=== PATIENT | female | born 1980 | race Caucasian/White ===

== ENCOUNTER 2018-05-14 05:33 | Day surgery (SDC) | payer OTHER ==
[2018-05-07 14:43] VITALS: BMI 22.6
[2018-05-07 15:04] LABS: BASO % 0.7 % (0-2.0); EOS % 1.3 % (0-4.5); HEMATOCRIT 38.9 % (32.4-45.2); HEMOGLOBIN 13.5 GM/dL (10.7-15.3); LYMPH % 25.4 % (8-40); MCH 31.7 pg (25.7-33.7); MCHC 34.7 g/dl (32.0-36.0); MEAN CELL VOLUME 91.4 fl (80-96); MEAN PLT VOLUME 9.7 fl (7.5-11.1); MONO % 9.6 % (3.8-10.2); PLATELET COUNT 261 K/MM3 (134-434); RBC 4.25 M/mm3 (3.60-5.2); RDW 12.6 % (11.6-15.6); WHITE BLOOD COUNT 6.7 K/mm3 (4.0-10.0)
[2018-05-07 15:33] LABS: ALBUMIN 3.6 g/dl (3.4-5.0); ALK PHOS 64 U/L (45-117); ANION GAP 7 MMOL/L (8-16); BILIRUBIN,TOTAL 0.4 mg/dL (0.2-1); BLOOD UREA NITROGEN 15 mg/dL (7-18); CALCIUM 8.4 mg/dL (8.5-10.1); CHLORIDE 105 mmol/L (98-107); CO2 26 mmol/L (21-32); CREATININE 0.7 mg/dL (0.55-1.3); GLUCOSE,RANDOM 77 mg/dL (74-106); SGOT/AST 19 U/L (15-37); SGPT/ALT 24 U/L (13-61); SODIUM 138 mmol/L (136-145); TOT PROT 7.6 g/dl (6.4-8.2)
[2018-05-07 16:39] LABS: INR 1.03 (0.83-1.09); PROTHROMBIN TIME (PATIENT) 12.2 SEC (9.7-13.0)
[2018-05-14] MEDS ORDERED: ONDANSETRON 4 MG/2 ML VIAL ONE (07:17)
[2018-05-14] MEDS ORDERED: DEXAMETHASONE SOD PHOSPHATE 4 MG/1 ML VIAL ONE (07:17)
[2018-05-14] MEDS ORDERED: SODIUM CHLORIDE 0.9% P/F 10 ML VIAL IJ ONE (07:17)
[2018-05-14] MEDS ORDERED: ceFAZolin SODIUM 1 GM VIAL ONE (07:17)
[2018-05-14] MEDS ORDERED: LIDOCAINE HCL/PF 2% SDV 5ML VIAL ONE (07:17)
[2018-05-14] MEDS ORDERED: PROPOFOL 20 ML ONE (07:18)
[2018-05-14] MEDS ORDERED: ROCURONIUM BROMIDE 50 MG/5 ML VIAL ONE (07:18)
[2018-05-14] MEDS ORDERED: MIDAZOLAM HCL 2 MG/2 ML SINGLE DOSE VIAL ONE (07:19)
--- NOTE | 2018-05-14 08:03 | HP ---
History & Physical Update - Physical Physical: No Change - Assessment Assessment: No Change - Plan Plan: No Change ( one prervious c/s for laparoscopic bilateral tubal cauterization)
[2018-05-14] MEDS ORDERED: ONDANSETRON 4 MG/2 ML VIAL IVPUSH PRN ×2 (08:25→08:54)
[2018-05-14] MEDS ORDERED: NEOSTIGMINE METHYLSULFATE 0.5 MG/1 ML - 10 ML MDV ONE (08:28)
[2018-05-14] MEDS ORDERED: LACTATED RINGERS SOLUTION 1,000 ML IV SCH (08:30)
[2018-05-14] MEDS ORDERED: KETOROLAC TROMETHAMINE 30 MG/1 ML VIAL ONE (08:37)
[2018-05-14] MEDS ORDERED: GLYCOPYRROLATE 0.2 MG/1 ML VIAL ONE (08:42)
[2018-05-14] MEDS ORDERED: IBUPROFEN 600 MG TABLET (FP) PO PRN (08:54)
[2018-05-14] MEDS ORDERED: IBUPROFEN 800 MG/8 ML IJ IVPB PRN (08:54)
[2018-05-14] MEDS ORDERED: oxyCODONE HCL 5 MG TABLET PO PRN (08:54)
[2018-05-14] MEDS ORDERED: ELECTROLYTE-148 SOLN 1,000 ML IV SCH (09:00)
[2018-05-14 11:36] VITALS: TEMP 97.8
[2018-05-14 12:23] VITALS: BP 113/64; PULSE 65
--- NOTE | 2018-05-14 12:51 | OP ---
DATE OF OPERATION: 05/14/2018 PREOPERATIVE DIAGNOSIS: Voluntary sterilization. POSTOPERATIVE DIAGNOSIS: Voluntary sterilization. PROCEDURE: Laparoscopic bilateral tubal cauterization and division. SURGEON: Kenji Parker MD ANESTHESIA: General. ESTIMATED BLOOD LOSS: 5 mL. OPERATION: Patient was taken to the operating room under adequate general anesthesia in dorsal lithotomy position. Examination under anesthesia revealed external genitalia to be normal. Vagina was normal. Cervix was clean, no lesion. Uterus was anteverted, normal size. Adnexa, no masses were palpable. Then, with a weighted speculum in the vagina, anterior lip of the cervix was grasped with a single-hook tenaculum, and Hulka was introduced into the uterine cavity for manipulation. Sultana was inserted. Patient was prepped and draped for a pelviscopy. A small infraumbilical skin incision was made. Veress needle was introduced. Pneumoperitoneum was established. A 5-mm trocar was introduced without any difficulty under direct vision. Then, another 5-mm trocar was introduced through the suprapubic position. In Trendelenburg position, upper abdomen was checked, was normal, bowels were normal. Pelvic cavity, uterus normal sized. No pelvic adhesion. Both ovaries and tubes appeared to be normal. Bladder was normal. Then, the right tube was grasped with LigaSure bipolar cautery, cauterized and cut in 3 places. The same procedure repeated for opposite tube. No bleeding was seen. Instruments withdrawn. Abdomen was emptied of all the gases. Suprapubic and infraumbilical skin incisions were closed with interrupted sutures of 3-0 Biosyn, and skin was closed with Dermabond glue. Patient tolerated the procedure well, left the OR in good condition. Maurisio [id number]
== END 2018-05-14 11:55 | disposition home or self-care (01) ==
LOC: JASU-SURG 05:33
PROVIDERS: ATTEND Obstetrics & Gynecology
PROC: 0U574ZZ Destruction of Bilateral Fallopian Tubes, Percutaneous Endoscopic Approach (ICD-10-PCS; principal; 2018-05-14 08:00)
DX: Z30.2 Encounter for sterilization (principal)
CPT/HCPCS: 36415; 80053; 84702; 84703; 85025; 85610; 85730; 94760